=== PATIENT | female | born 1980 | race Caucasian/White ===

== ENCOUNTER 2017-02-21 20:31 | Emergency (ER) | payer OTHER ==
[2017-02-21] MEDS ORDERED: CEPHALEXIN 500MG PREPACK#4 BTL TAKEHOME ONE (21:52)
--- NOTE | 2017-02-21 21:54 | EDPHY ---
H & P Time Seen by Provider: 02/21/17 20:51 HPI/ROS: 36-year-old female presents complaining of swelling at the back of her right hand after being stung by a bee 2 days ago, she states she had a similar episode 9 months ago which able to into a significant cellulitis and she is quite concerned that this is cellulitis at this time. No fevers no chills, no lymphangitic streaks no drainage. Review of systems As per HPI General no fever no chills no weakness HEENT no eye pain no eye discharge. No eye redness, no sore throat Respiratory no cough, no shortness of breath Cardiac no chest pain, no peripheral edema GI no abdominal pain, no diarrhea, no constipation, no nausea, no vomiting no flank pain, no hematuria, no dysuria Musculoskeletal no myalgias, no joint pain Heme no easy bruising, no easy bleeding Endo no polyuria, no polydipsia Skin positive rashes, no pruritus Neuro no syncope, no dizziness, no headaches Psych is no suicidal ideation, no homicidal ideation Past Medical/Surgical History: Depression/anxiety Hypothyroidism Social History: Denies excessive alcohol or drug use Smoking Status: Never smoked Physical Exam: 36-year-old female Alert and oriented in no acute distress nontoxic appearance, afebrile Atraumatic normocephalic Neck no JVD Lungs clear to auscultation, no respiratory distress Heart regular rate and rhythm Extremities no cyanosis clubbing edema Skin Right hand-dorsum of right hand with area approximately 6 x 6 cm erythematous swollen no increased warmth No lymphangitic streaks no drainage Constitutional: Initial Vital Signs Temperature (C) 37.2 C 02/21/17 20:42 Heart Rate 86 02/21/17 20:42 Respiratory Rate 12 02/21/17 20:42 Blood Pressure 151/107 H 02/21/17 20:42 O2 Sat (%) 96 02/21/17 20:42 O2 Delivery Mode Room Air Allergies/Adverse Reactions: No Known Allergies Allergy (Verified 02/21/17 20:46) Home Medications: Medication Instructions Recorded Fluoxetine HCl 10/03/13 Levothyroxine 10/03/13 Cephalexin 500 mg PO QID #28 tablet 02/21/17 methylPREDNISolone [Medrol Dose 1 each PO AD #1 ea 02/21/17 Adalberto] Medical Decision Making ED Course/Re-evaluation: Patient seen and evaluated for rash following insect sting Differential diagnosis considered Simple insect sting, anaphylactoid type reaction to insect sting, reaction to insect sting addition with additional cellulitis, cellulitis Impression Insect sting with reaction Cannot rule out cellulitis Patient is most concerned that it may be cellulitis given her prior history of cellulitis Plan Medrol Dosepak Benadryl Ice Keflex Follow-up PCP Return if worsening - Data Points Medications Given: Discontinued Medications Cephalexin (Keflex 500 Mg Prepack#4) 1 btl TAKEHOME EDNOW ONE PRN Reason: Protocol Stop: 02/21/17 21:53 Last Admin: 02/21/17 22:02 Dose: 1 btl Departure - Departure Disposition: Home, Routine, Self-Care Clinical Impression: Insect sting, Cellulitis of hand Condition: Good Instructions: Cellulitis (ED), Insect Bite or Sting (ED) Referrals: ELVIN SALGADO [Primary Care Provider] - As per Instructions Prescriptions: Cephalexin 500 mg PO QID #28 tablet methylPREDNISolone [Medrol Dose Adalberto] 1 each PO AD #1 ea
[2017-02-21 22:14] VITALS: BP 167/112; PULSE 82; RESP 16; TEMP 98.6; O2SAT 97
== END 2017-02-21 22:11 | disposition home or self-care (01) ==
LOC: CED 20:31
DX: T63.441A Toxic effect of venom of bees, accidental (unintentional), initial encounter (principal); L03.113 Cellulitis of right upper limb